=== PATIENT | female | born 1970 | race Caucasian/White ===

== ENCOUNTER 2023-01-10 11:22 | Emergency (ER) | payer OTHER ==
[2023-01-10] MEDS ORDERED: Albuterol/Ipratropium 3.0-0.5 MG/3 ML Neb Soln NEB ONE (11:32)
[2023-01-10] MEDS ORDERED: methylPREDNISolone Sodium Succinate 125 MG/2 ML SDV IVPUSH ONE (11:32)
[2023-01-10] MEDS ORDERED: Codeine/Promethazine 10-6.25 MG/5 ML Syrup 5 ML UD Cup PO ONE (11:36)
[2023-01-10] MEDS ORDERED: Codeine/Promethazine 10-6.25 MG/5 ML Syrup 5 ML UD Cup ONE (12:01)
[2023-01-10 12:06] LABS: CHLORIDE,CL 105 mmol/L (98-107); SODIUM,NA 141 mmol/L (136-145)
[2023-01-10 12:10] LABS: ANION GAP 15.6 mmol/L (5-15); ESTIMATED GFR 89 mL/min (>=60)
[2023-01-10 13:36] VITALS: BP 105/57; PULSE 98
== END 2023-01-10 12:47 | disposition home or self-care (01) ==
LOC: SUPCPDRO 11:22 → VM.ED 11:22
DX: J18.9 Pneumonia, unspecified organism (principal); Z72.0 Tobacco use
CPT/HCPCS: 80053; 83880; 84484; 85025; 85379; 86140; 94640; 96374; 99284; A9270; J2930; J7620-GY

== ENCOUNTER 2024-02-17 10:48 | Day surgery (SDC) | payer OTHER ==
[2024-02-17] MEDS: Lactated Ringers 1,000 ML IV SCH (11:08)
[2024-02-17] MEDS ORDERED: Propofol 200 MG/20 ML SDV ONE (12:11)
[2024-02-17] MEDS ORDERED: fentaNYL 100 MCG/2 ML SDV ONE (12:12)
[2024-02-17] MEDS ORDERED: Midazolam 1 MG/ML 2 ML SDV ONE (12:12)
[2024-02-17 13:02] VITALS: BP 149/87; PULSE 79
== END 2024-02-17 13:34 | disposition home or self-care (01) ==
LOC: VM.SDS 10:48
PROVIDERS: ATTEND Surgery
DX: Z12.11 Encounter for screening for malignant neoplasm of colon (principal); R10.9 Unspecified abdominal pain; R11.0 Nausea; E66.9 Obesity, unspecified; Z68.35 Body mass index [BMI] 35.0-35.9, adult; Z87.891 Personal history of nicotine dependence; Z86.16 Personal history of COVID-19; Z79.899 Other long term (current) drug therapy; Z90.49 Acquired absence of other specified parts of digestive tract
CPT/HCPCS: J2250; J2704; J3010; J7120

== ENCOUNTER 2025-03-19 19:39 | Emergency (ER) | payer OTHER ==
[2025-03-19] MEDS ORDERED: Cyclopentolate 1% Opth Soln 2 ML Bottle EYELF ONE (20:14)
[2025-03-19 20:31] VITALS: BP 140/77; PULSE 111
[2025-03-19] MEDS: Tropicamide 1% Ophth Soln 15 ML Bottle EYELF ONE (22:46)
== END 2025-03-19 21:30 | disposition home or self-care (01) ==
LOC: VM.ED 19:39
DX: H43.392 Other vitreous opacities, left eye (principal); Z79.899 Other long term (current) drug therapy; Z86.16 Personal history of COVID-19
CPT/HCPCS: 99283